=== PATIENT | female | born 1945 | race Caucasian/White ===

== ENCOUNTER 2021-10-07 23:22 | Observation (INO) ==
[2021-10-08] MEDS ORDERED: metroNIDAZOLE INJ 500 MG/100 ML PREMIX IV STA (00:01)
[2021-10-08] MEDS ORDERED: ONDANSETRON 4 MG/2 ML VIAL IV PRN ×2 (00:03→00:08)
[2021-10-08] MEDS ORDERED: ACETAMINOPHEN 325 MG TABLET PO PRN (00:03)
[2021-10-08] MEDS ORDERED: MORPHINE 4 MG/1 ML VIAL IV PRN (00:08)
[2021-10-08] MEDS: LACTATED RINGERS 1,000 ML IV SCH ×4 (00:45→16:15)
[2021-10-08 00:54] LABS: Basophils % 0.2 % (0.0-0.8); Eosinophils % 0.1 % (0.00-10.9); Hematocrit 39.7 VOL% (35.7-47.0); Hemoglobin 12.8 GM/DL (12.0-16.0); Immature Granulocytes % 0.4 %; Immature Granulocytes Absolute 0.05 #; Lymphocytes # 0.4 10*3/uL (1.4-4.0); Lymphocytes % 3.4 % (21.3-54.2); Mean Corpuscular HGB Conc 32.2 GM/DL (32-36); Mean Corpuscular Volume 90.6 FL (87-102); Mean Platelet Volume 10.4 FL (9.6-12.0); Neutrophils % 91.9 % (38.7-73.9); Platelet Count 164 T/CUMM (130-400); Red Blood Count 4.38 MC/CUMM (3.8-5.5); Red Cell Distribution Width 13.6 % (9.3-17.3); White Blood Count 11.8 T/CUMM (4-12)
[2021-10-08 01:05] LABS: Bilirubin,Total 0.9 MG/DL (0.20-1.00); Calcium 8.1 MG/DL (8.5-10.1); Osmolality,Calculated 268.2 MOS/KG (273-304); Potassium 4.3 MMOL/L (3.5-5.1); Total Protein 6.3 G/DL (6.4-8.2)
[2021-10-08 01:33] LABS: Band Neutrophils 6 % (0-10); Lymphocytes 6 % (20-55); Platelet Estimate Normal; Segmented Neutrophils 83 % (50-85); Total Cells Counted 100
[2021-10-08] MEDS: CIPROFLOXACIN INJ 400 MG/200 ML PREMIX IV SCH ×2 (02:26→13:44)
[2021-10-08] MEDS ORDERED: ALBUTEROL 2.5 MG/3 ML NEB RESP TX STA (07:02)
[2021-10-08] MEDS ORDERED: LIDOCAINE 1%/EPI INJ 20 ML VIAL ONE (07:57)
[2021-10-08] MEDS ORDERED: TISSUE ADHESIVE 1 EACH APPLICATOR TOP ONE (07:57)
[2021-10-08] MEDS ORDERED: BUPIVACAINE MPF 0.25% 30 ML VIAL ONE (07:57)
[2021-10-08] MEDS: metroNIDAZOLE INJ 500 MG/100 ML PREMIX IV SCH ×2 (09:07→16:45)
[2021-10-08] MEDS: PANTOPRAZOLE 40 MG TABLET PO SCH (09:07)
[2021-10-08] MEDS ORDERED: ROCURONIUM 50 MG/5 ML VIAL IV ONE (10:11)
[2021-10-08] MEDS ORDERED: LIDOCAINE 2% 5 ML VIAL ONE (10:11)
[2021-10-08] MEDS ORDERED: propofoL 200 MG/20 ML VIAL IV ONE (10:11)
[2021-10-08] MEDS ORDERED: fentaNYL 100 MCG/2 ML VIAL ONE (10:11)
[2021-10-08] MEDS ORDERED: ACETAMINOPHEN INJ 1,000 MG/100 ML VIAL IV ONE (10:41)
[2021-10-08] MEDS ORDERED: SEVOFLURANE 1 UNIT/15 MINUTE INH ONE (10:41)
[2021-10-08] MEDS ORDERED: ONDANSETRON 4 MG/2 ML VIAL ONE (10:41)
[2021-10-08] MEDS ORDERED: DEXAMETHASONE 4 MG/1 ML VIAL ONE (10:41)
[2021-10-08] MEDS ORDERED: KETOROLAC 30 MG/1 ML VIAL ONE (10:41)
[2021-10-08] MEDS ORDERED: GLYCOPYRROLATE 0.4 MG/2 ML VIAL ONE (10:41)
[2021-10-08] MEDS ORDERED: NEOSTIGMINE 10 MG/10 ML VIAL ONE (10:42)
[2021-10-08] MEDS ORDERED: SUGAMMADEX 200 MG/2 ML VIAL IV ONE (10:51)
[2021-10-08] MEDS ORDERED: ALBUTEROL/IPRATROPIUM 3 ML NEB RESP TX ONE ×2 (11:04→11:05)
[2021-10-09] MEDS: metroNIDAZOLE INJ 500 MG/100 ML PREMIX IV SCH ×2 (00:57→08:49)
[2021-10-09] MEDS: CIPROFLOXACIN INJ 400 MG/200 ML PREMIX IV SCH (02:35)
[2021-10-09] MEDS: LACTATED RINGERS 1,000 ML IV SCH ×2 (02:39→07:34)
[2021-10-09 08:09] VITALS: BP 148/122
[2021-10-09] MEDS: PANTOPRAZOLE 40 MG TABLET PO SCH (08:50)
== END 2021-10-09 12:28 | disposition home or self-care (01) ==
LOC: N.EDINP 23:22 → N.ED 23:22 → N.3E 10-08 17:58
PROVIDERS: ADMIT Surgery; ATTEND Surgery